=== PATIENT | female | born 2000 ===

== ENCOUNTER 2025-03-03 08:29 | Emergency (ER) | payer OTHER ==
[~2025-03-03] VITALS: Ht 157.5 cm; Wt 79.8 kg
[2025-03-03 09:07] VITALS: BP 135/95; O2SAT 99
[2025-03-03] MEDS ORDERED: 0.9 % SODIUM CHLORIDE 1,000 ML IV STA (09:32)
[2025-03-03] MEDS ORDERED: ACETAMINOPHEN 500 MG GEL..CAP PO STA (09:33)
[2025-03-03] MEDS ORDERED: ACETAMINOPHEN 500 MG GEL..CAP PO ONE (09:44)
[2025-03-03 10:36] LABS: HEMATOCRIT 34.5 % (36.0-45.00); HEMOGLOBIN 11.2 g/dL (12.0-15.00); MEAN CELL VOLUME 82.8 fL (80.00-100.00); MEAN CORPUSCULAR HGB CONC 32.6 g/dl (32.0-36.0); PLATELET COUNT 328 K/uL (150-450); RED BLOOD COUNT 4.17 M/uL (4.00-6.00); RED CELL DISTRIBUTION WIDTH 16.6 % (11.5-14.5)
[2025-03-03 10:51] LABS: CALCIUM 8.6 mg/dL (8.5-10.1); CREATININE SERUM 0.5 mg/dL (0.55-1.02); GFR 150.33; POTASSIUM 3.84 mEq/L (3.5-5.1)
[2025-03-03 10:53] LABS: URINE APPEARANCE Clear; URINE BILIRRUBIN Negative (NEGATIVE); URINE BLOOD Moderate; URINE COLOR Dark Yellow; URINE GLUCOSE Negative (NEGATIVE); URINE KETONE 15 (NEGATIVE); URINE LEUKOCYTE Small; URINE NITRATE Negative; URINE PROTEIN Negative (NEGATIVE)
[2025-03-03 10:58] LABS: URINE BACTERIA 269.2 uL (0.0-1933); URINE EPITHELIAL CELLS 31.8 uL (0.0-38.8); URINE WBC 35.2 uL (0.0-23.2)
[2025-03-03 11:19] LABS: URINE CAST 0.44 uL (0.0-1.40)
== END 2025-03-03 14:49 | disposition home or self-care (01) ==
LOC: ER 10:33
PROVIDERS: General Practice
DX: O89.4 Spinal and epidural anesthesia-induced headache during the puerperium (principal)